=== PATIENT | male | born 1955 | race Caucasian/White ===

== ENCOUNTER → 2020-05-07 | Outpatient (CLI) | payer MEDICARE ==
[~2020-05-07] MED LIST: IOPAMIDOL 370 MG/ML 200 ML INFUS..BTL INJ ONE; SODIUM CHLORIDE 0.9% 500ML 500 ML ONE; SODIUM CHLORIDE 0.9% 50ML 50 ML ONE
[2020-05-07 14:07] LABS: CREATININE, SERUM 1.37 mg/dL (0.72-1.25)
== END ==
LOC: CT 13:12
PROVIDERS: ATTEND Internal Medicine Gastroenterology
DX: K86.3 Pseudocyst of pancreas (principal)
CPT/HCPCS: 36415; 74177; 82565; 84520; 96360; J7040; Q9967